=== PATIENT | male | born 1975 | race Caucasian/White ===

== ENCOUNTER 2018-06-16 22:54 | Emergency (ER) | payer OTHER ==
[~2018-06-16] VITALS: Ht 185.4 cm; Wt 86.2 kg
[~2018-06-16 22:54] MED LIST: CIPRO250 MG ORAL; CIPRODEX OTIC7.5 M1 LEFT EAR; NORCO 5-325 TA1 EACH ORAL; TRAMADOL HCL50 MG ORAL
[2018-06-16] MEDS ORDERED: ALBUTEROL2.5 MG/3 M INH (23:09)
[2018-06-16] MEDS ORDERED: ADVAIR HFA 115-12 GM INH (23:09)
[2018-06-16] MEDS ORDERED: Albuterol/Ipratropium 3ml neb HHN ONE (23:15)
[2018-06-16 23:20] VITALS: BP 100/62
--- NOTE | 2018-06-16 23:20 | NUR ---
ED Nurse Note: Patient walk in c/o asthma attack for 1x day. Patient states he is out of his albuterol and advair. Patient has clear lungsounds in both lungs bilaterally upon auscultation. Patient AOx4, VSS, ambulatory with steady gait. Patient seen by ERMD at bedside.
--- NOTE | 2018-06-16 23:25 | NUR ---
ED Nurse Note: Patient recieving breathing tx at bedside by RT
[2018-06-16] MEDS ORDERED: Albuterol ud Inhalation ONE (23:39)
[2018-06-16] MEDS ORDERED: Albuterol ud Inhalation HHN ONE (23:45)
[2018-06-17] MEDS ORDERED: ALBUTEROL SULF8.5 GM INH (00:21)
[2018-06-17] MEDS ORDERED: SPIRIVA18 MCG INH (00:21)
[2018-06-17] MEDS ORDERED: PREDNISONE20 MG ORAL (00:21)
--- NOTE | 2018-06-17 00:22 | Emergency Room Report ---
History of Present Illness General Chief Complaint: Asthma Source: Patient Present Illness HPI Is a 42-year-old male with history of asthma. He presents with chief complaint of wheezing and coughing. Onset for last 2 days. He is out of his inhalers. No nausea no vomiting. Still smokes. Still smokes marijuana. Worse with exertion. Worse with inspiration. Denies any other complaint. Allergies: Coded Allergies: No Known Allergies (Unverified , 09/27/13) Patient History Past Medical History: see triage record, old chart reviewed, asthma Past Surgical History: other Pertinent Family History: none Social History: Reports: smoking, drug use Immunizations: other Reviewed Nursing Documentation: PMH: Agreed; PSxH: Agreed Nursing Documentation-PMH Hx Asthma: Yes Review of Systems Eye: Denies: eye pain, blurred vision ENT: Denies: ear pain, nose congestion, throat swelling Respiratory: Reports: shortness of breath, wheezing; Denies: cough Cardiovascular: Denies: chest pain, palpitations Gastrointestinal: Denies: abdominal pain, diarrhea, nausea, vomiting Musculoskeletal: Denies: back pain, joint pain Skin: Denies: rash Neurological: Denies: headache, numbness Endocrine: Denies: increased thirst, increased urine Hematologic/Lymphatic: Denies: easy bruising All Other Systems: negative except mentioned in HPI Physical Exam Vital Signs Date Time Temp Pulse Resp B/P (MAP) Pulse Ox O2 Delivery O2 Flow Rate FiO2 06/16/18 23:03 98.4 82 18 100/62 92 Room Air 06/16/18 23:20 92 vitals with hypoxia Sp02 EP Interpretation: abnormal General Appearance: well appearing, alert, mild distress Head: normocephalic, atraumatic Eyes: bilateral eye PERRL, bilateral eye EOMI ENT: hearing grossly normal, normal pharynx Neck: full range of motion, supple, no meningismus Respiratory: chest non-tender, decreased breath sounds, accessory muscle use, wheezing Cardiovascular #1: regular rate, rhythm, no murmur Gastrointestinal: normal bowel sounds, non tender, no mass, no organomegaly, no bruit, non-distended Musculoskeletal: back normal, gait/station normal, normal range of motion Psychiatric: mood/affect normal Skin: warm/dry Medical Decision Making Diagnostic Impression: Primary Impression: Asthma attack Qualified Codes: J45.21 - Mild intermittent asthma with (acute) exacerbation ER Course Patient with asthma exacerbation. Wheezing cleared after that lasted treatment. He felt better now. No evidence of ACS, PE, dissection to name a few. We'll discharge home. Last Vital Signs Date Time Temp Pulse Resp B/P (MAP) Pulse Ox O2 Delivery O2 Flow Rate FiO2 06/17/18 00:00 84 20 100 Room Air 21 06/16/18 23:20 98.4 100/62 Status: improved Disposition: HOME, SELF-CARE Condition: Stable Scripts Prednisone* (PREDNISONE*) 20 Mg Tablet 40 MG ORAL DAILY, #8 TAB Prov: Jeff Barajas MD 06/17/18 Tiotropium Mckenna* (SPIRIVA*) 18 Mcg Cap.w.dev 1 PUFF INH DAILY, #1 EA 3 Refills Prov: Jeff Barajas MD 06/17/18 Albuterol Sulfate* (ALBUTEROL SULFATE MDI*) 8.5 Gm Hfa.aer.ad 2 PUFF INH Q4H PRN for cough/wheezing, #1 EA 3 Refills Prov: Jeff Barajas MD 06/17/18 Patient Instructions: Asthma, Adult Additional Instructions: Stop smoking. Follow-up with your doctor in 7 days. Return if worse. Jeff Barajas MD Jun 17, 2018 00:22
[2018-06-17 00:29] VITALS: BP 110/69
--- NOTE | 2018-06-17 00:30 | NUR ---
ED Nurse Note: Patient cleared for discharge by ERMFercho. Patient AOx4, VSS, ambulatory with steady gait, no s/s of acute distress noted at this time. patient provided with discharge instructions and medication prescriptions. Patient verbalized understanding. Patient instructed to follow up with PCP in 1x week. Patient stated he is driving himself home. patient took all personal belongings with him. Patient ID band removed.
[2018-06-17 00:32] VITALS: BP 110/69
== END 2018-06-17 00:30 | disposition home or self-care (01) ==
LOC: EMR 23:41
DX: J45.21 Mild intermittent asthma with (acute) exacerbation (principal)
CPT/HCPCS: 94640; 94664; 99284; J7512; J7620